=== PATIENT | female | born 1970 | race Caucasian/White ===

== ENCOUNTER → 2017-12-16 | Outpatient (CLI) | payer OTHER ==
[2015-02-13 11:14] VITALS: BMI 24.7
[~2017-12-16] MED LIST: ACET-1966 PO; ACET-2708 PO; ASPI-1471 PO; CALC-1 PO; GLUC100026 PO; IBU800 PO; IBUP800T37 PO; KET10 PO; LOR5/325 PO; MULT-1085 PO; PER PO; TUM500 PO; [UNRECOGNIZED DRUG - CODE] PO; [UNRECOGNIZED DRUG - CODE] PO
--- NOTE | 2017-12-16 14:42 | RADIOLOGY IMAGING REPORT ---
FACILITY: [facility] - [place] PATIENT NAME: GURPREET JOHNSON : [id number] MR: [id number] V: [id number] EXAM DATE: [id number] ORDERING PHYSICIAN: JOLANTA PHAN TECHNOLOGIST: Jammie Chen PROCEDURE:BILATERAL DIGITAL SCREENING MAMMOGRAM WITH CAD ASSISTED INTERPRETATION & 3D TOMOSYNTHESIS COMPARISON:Prior mammograms 10/13/16, 10/01/15, 07/18/13. INDICATIONS:SCREENING FINDINGS: Dense heterogeneous fibroglandular tissue is seen throughout the breasts. The parenchymal pattern has remained stable allowing for difference in mammographic technique & patient positioning. There is no evidence of malignant appearing mass, malignant appearing calcifications or other secondary sign of malignancy in either breast. DIAGNOSTIC CATEGORY 1--NEGATIVE. RECOMMENDATIONS: ROUTINE MAMMOGRAM AND CLINICAL EVALUATION. IMPRESSION: BIRADS 1: Negative. No significant abnormality is seen. Dictated by: Pina Campos M.D. on 12/16/2017 at 11:47 Transcribed by: AMANDA on 12/16/2017 at 13:22 Approved by: Pina Campos M.D. on 12/16/2017 at 14:42 [facility]
== END ==
LOC: MAMO 00:49
PROVIDERS: ATTEND Student in an Organized Health Care Education/Training Program
DX: Z12.31 Encounter for screening mammogram for malignant neoplasm of breast (principal)
CPT/HCPCS: 77063; 77067

== ENCOUNTER → 2018-09-05 | Outpatient (REF) ==
[2015-02-13 11:14] VITALS: BMI 24.7
[~2018-09-05] MED LIST changes: +AMOX500T10 PO; +AZIT-17 PO; +PROM5SYR PO
[2018-09-05 08:32] LABS: LDL CHOLESTEROL 71 mg/dl
== END ==
DX: Z02.9 Encounter for administrative examinations, unspecified (principal)